=== PATIENT | male | born 1960 | race Caucasian/White ===

== ENCOUNTER 2017-02-15 17:50 | Emergency (ER) | payer MEDICAID, MEDICARE, SELFPAY ==
[2017-02-15] MEDS ORDERED: Sodium Chloride 0.9% 10 ML Syringe FLUSH PRN (17:54)
--- NOTE | 2017-02-15 18:06 | EDM.PDOC ---
ED HPI GENERAL MEDICAL PROBLEM - General Chief Complaint: General Stated Complaint: difficulting speaking Time Seen by Provider: 02/15/17 17:55 Source of Information: Reports: Patient, Family, Old Records History Limitations: Reports: Other (Patient with expressive aphasia) - History of Present Illness INITIAL COMMENTS - FREE TEXT/NARRATIVE: 57 yo male smoker who has been off all of his psych meds for at least 3 mos presents with his family with inability to speak normally since about 0900h today. His "Life Partner" says she had work to do and thought he would get better. Has no local doctor. Has been in [place] for several months, before that he lived in [place]. Can answer some simple questions appropriately. Other answers are inappropriate or incomprehensible. 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 [Unable to Verify Home Med List] 03/20/16 [History] Past Medical History HEENT History: Reports: Hard of Hearing, Other (See Below) Other HEENT History: Suppose to wear glasses. Respiratory History: Reports: COPD Gastrointestinal History: Reports: Hepatitis, Other (See Below) Other Gastrointestinal History: Hepatitis C, not treated. Musculoskeletal History: Reports: Other (See Below) Other Musculoskeletal History: fibromyalgia Neurological History: Reports: Other (See Below) Other Neuro History: Headache at time. Psychiatric History: Reports: Anxiety, Bipolar, Depression Immunologic History: Reports: Other (See Below) Other Immunologic History: Hepatitis C. 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 Dermatologic History: Reports: Other (See Below) Other Dermatologic History: Pre-cancer areas surgically removed to right shoulder and forehead. - Infectious Disease History Infectious Disease History: Reports: Chicken Pox, Hepatitis C, Other (See Below) Other Infectious Disease History: History of measles---type unknown. Social & Family History - Family History Family Medical History: Noncontributory - Tobacco Use Smoking Status *Q: Current Every Day Smoker Years of Tobacco use: 40 Packs/Tins Daily: 2 - Caffeine Use Caffeine Use: Reports: Coffee - Alcohol Use Days Per Week of Alcohol Use: 7 Number of Drinks Per Day: 6 Total Drinks Per Week: 42 - Recreational Drug Use Recreational Drug Use: No ED ROS GENERAL - Review of Systems Review Of Systems: See Below Constitutional: Reports: No Symptoms HEENT: Reports: No Symptoms Respiratory: Reports: No Symptoms Cardiovascular: Reports: No Symptoms Endocrine: Reports: No Symptoms GI/Abdominal: Reports: No Symptoms : Reports: No Symptoms Musculoskeletal: Reports: No Symptoms Skin: Reports: No Symptoms Neurological: Reports: Change in Speech. Denies: Confusion Psychiatric: Reports: No Symptoms ED EXAM, GENERAL - Physical Exam Exam: See Below Exam Limited By: No Limitations General Appearance: Alert, WD/WN, No Apparent Distress Eye Exam: Bilateral Eye: EOMI, Normal Inspection, PERRL Ears: Normal External Exam, Normal Canal, Hearing Grossly Normal, Normal TMs Ear Exam: Bilateral Ear: Auricle Normal, Canal Normal, TM normal Nose: Normal Inspection, Normal Mucosa, No Blood Throat/Mouth: Normal Inspection, Normal Lips, Normal Oropharynx, No Airway Compromise, Other (poor dentitian) Head: Atraumatic, Normocephalic Neck: Normal Inspection, Supple. No: Carotid Bruit Respiratory/Chest: No Respiratory Distress, Lungs Clear, Normal Breath Sounds, No Accessory Muscle Use Cardiovascular: Regular Rate, Rhythm, No Edema GI/Abdominal: Normal Bowel Sounds, Soft, Non-Tender, No Distention Back Exam: Normal Inspection, Full Range of Motion. No: CVA Tenderness (R), CVA Tenderness (L) Extremities: Normal Inspection, Normal Range of Motion, Non-Tender, No Pedal Edema Neurological: Alert, Oriented, CN II-XII Intact, Normal Cognition, No Motor/ Sensory Deficits, Other (speech is not clear and word choices are off) Psychiatric: Normal Affect, Normal Mood Skin Exam: Warm, Dry, Intact, Normal Color, No Rash Lymphatic: No Adenopathy EKG INTERPRETATION EKG Date: 02/15/17 Time: 18:00 Rhythm: NSR Rate (Beats/Min): 80 [place]: Normal P-Wave: Present QRS: Normal ST-T: Normal QT: Normal Comparison: No Change Course - Vital Signs Last Recorded V/S: Last Vital Signs Temp 36.7 C 02/15/17 18:00 Pulse 90 02/15/17 18:00 Resp 19 02/15/17 18:00 BP 142/97 H 02/15/17 18:00 Pulse Ox 100 02/15/17 18:42 - Orders/Labs/Meds Orders: Active Orders 24 hr Category Date Time Status Cardiac Monitoring [RC] .As Directed Care 02/15/17 17:54 Active EKG Documentation Completion [RC] ASDIRECTED Care 02/15/17 17:54 Active Oxygen Therapy Adult [Oxygen Therapy, ED] [RC] Care 02/15/17 18:42 Active ASDIRECTED Head wo Cont [CT] Stat Exams 02/15/17 17:56 Taken BASIC METABOLIC PANEL,BMP [CHEM] Stat Lab 02/15/17 18:10 Received Blood Alcohol [ETHANOL BLOOD MEDICAL] [CHEM] Stat Lab 02/15/17 18:10 Received CBC W/O DIFF,HEMOGRAM [HEME] Stat Lab 02/15/17 18:10 Received TROPONIN I [CHEM] Stat Lab 02/15/17 18:10 Received UA W/MICROSCOPIC [URIN] Stat Lab 02/15/17 18:11 Received Sodium Chloride 0.9% [Saline Flush] Med 02/15/17 17:54 Active 10 ml FLUSH ASDIRECTED PRN Saline Lock Insert [OM.PC] Routine Oth 02/15/17 17:54 Ordered EKG 12 Lead [EK] Routine Ther 02/15/17 17:54 Ordered Medication Orders Sodium Chloride (Saline Flush) 10 ml FLUSH ASDIRECTED PRN PRN Reason: Keep Vein Open Meds: Medications Generic Name Dose Route Start Last Admin Trade Name Freq PRN Reason Stop Dose Admin Sodium Chloride 10 ml 02/15/17 17:54 Saline Flush FLUSH ASDIRECTED PRN Keep Vein Open - Radiology Interpretation Free Text/Narrative:: Evolving thrombotic L frontal CVA CT Results Date: 02/15/17 CT Results Time: 18:35 Departure - Departure Time of Disposition: 18:50 Disposition: DC/Tfer to Acute Hospital 02 Condition: Fair Clinical Impression: Expressive aphasia, Medical non-compliance, Tobacco use HTN (hypertension) Qualifiers: Hypertension type: essential hypertension Qualified Code(s): I10 - Essential ( primary) hypertension CVA (cerebral vascular accident) Qualifiers: CVA mechanism: thrombosis Precerebral and cerebral artery: anterior cerebral artery Laterality of affected vessel: left Qualified Code(s): 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 - Discharge Information Referrals: PCP,None [Primary Care Provider] - Forms: ED Department Discharge - My Orders Last 24 Hours: My Active Orders 02/15/17 17:54 Cardiac Monitoring [RC] .As Directed EKG Documentation Completion [RC] ASDIRECTED Sodium Chloride 0.9% [Saline Flush] 10 ml FLUSH ASDIRECTED PRN Saline Lock Insert [OM.PC] Routine EKG 12 Lead [EK] Routine 02/15/17 17:56 Head wo Cont [CT] Stat 02/15/17 18:10 BASIC METABOLIC PANEL,BMP [CHEM] Stat Blood Alcohol [ETHANOL BLOOD MEDICAL] [CHEM] Stat CBC W/O DIFF,HEMOGRAM [HEME] Stat TROPONIN I [CHEM] Stat 02/15/17 18:11 UA W/MICROSCOPIC [URIN] Stat 02/15/17 18:42 Oxygen Therapy Adult [Oxygen Therapy, ED] [RC] ASDIRECTED - Assessment/Plan Last 24 Hours: My Active Orders 02/15/17 17:54 Cardiac Monitoring [RC] .As Directed EKG Documentation Completion [RC] ASDIRECTED Sodium Chloride 0.9% [Saline Flush] 10 ml FLUSH ASDIRECTED PRN Saline Lock Insert [OM.PC] Routine EKG 12 Lead [EK] Routine 02/15/17 17:56 Head wo Cont [CT] Stat 02/15/17 18:10 BASIC METABOLIC PANEL,BMP [CHEM] Stat Blood Alcohol [ETHANOL BLOOD MEDICAL] [CHEM] Stat CBC W/O DIFF,HEMOGRAM [HEME] Stat TROPONIN I [CHEM] Stat 02/15/17 18:11 UA W/MICROSCOPIC [URIN] Stat 02/15/17 18:42 Oxygen Therapy Adult [Oxygen Therapy, ED] [RC] ASDIRECTED
[2017-02-15 20:03] VITALS: BP 136/56
--- NOTE | 2017-02-16 08:49 | CT ---
INDICATION: Unable to speak since [address] HEAD WITHOUT CONTRAST: Serial contiguous 2.5 and 5-mm sections were obtained through the brain without contrast. No definite cranial abnormality is identified. The mastoid air cells were well aerated. Paranasal sinuses were well aerated. No shift of midline structures or ventricular abnormalities were suggested. Internal carotid artery calcifications are noted. In the left frontal area, there are areas of decreased density extending apparently into the cortex, suggesting an evolving thrombotic CVA in that area of moderate size. MRI may be helpful in further evaluation, as necessary clinically. No other abnormal areas of density were identified - no bleeding site or hematoma was seen. IMPRESSION: Evolving thrombotic CVA suggested in the left frontal distribution. Report was called to Dr. Steinberg at 1833 hours, 02/15/2017. Total Exam DLP = 949.36 mGy-cm. MTDD
== END 2017-02-15 19:15 ==
LOC: FB.ED 17:50
DX: I63.322 Cerebral infarction due to thrombosis of left anterior cerebral artery (principal); I10 Essential (primary) hypertension; J44.9 Chronic obstructive pulmonary disease, unspecified; F17.210 Nicotine dependence, cigarettes, uncomplicated; Z88.0 Allergy status to penicillin
CPT/HCPCS: 36415; 70450; 80048; 81001; 84484; 85027; 93005; 99285; G0480

== ENCOUNTER 2017-03-12 15:03 | Emergency (ER) | payer MEDICARE ==
[2017-03-12 15:21] VITALS: BP 177/82
--- NOTE | 2017-03-12 15:38 | EDM.PDOC ---
ED HPI GENERAL MEDICAL PROBLEM - General Chief Complaint: Eye Problems Stated Complaint: LEFT EYE Time Seen by Provider: 03/12/17 15:15 Source of Information: Reports: Patient History Limitations: Reports: No Limitations - History of Present Illness INITIAL COMMENTS - FREE TEXT/NARRATIVE: L eye irritation for the past couple of weeks. Has not been to the clinic. Eye lids crusted in the mornings. 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 Respiratory History: Reports: COPD Gastrointestinal History: Reports: Hepatitis, Other (See Below) Other Gastrointestinal History: Hepatitis C, not treated. Musculoskeletal History: Reports: Other (See Below) Other Musculoskeletal History: fibromyalgia Neurological History: Reports: CVA, Other (See Below) Other Neuro History: Headache at time. Psychiatric History: Reports: Anxiety, Bipolar, Depression Hematologic History: Reports: None Immunologic History: Reports: Other (See Below) Other Immunologic History: Hepatitis C. 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 Dermatologic History: Reports: Other (See Below) Other Dermatologic History: Pre-cancer areas surgically removed to right shoulder and forehead. - Infectious Disease History Infectious Disease History: Reports: Chicken Pox, Hepatitis C, Measles, Other ( See Below) Other Infectious Disease History: History of measles---type unknown. Social & Family History - Family History Family Medical History: Noncontributory - Tobacco Use Smoking Status *Q: Current Every Day Smoker Years of Tobacco use: 40 Packs/Tins Daily: 1 - Caffeine Use Caffeine Use: Reports: Coffee - Alcohol Use Days Per Week of Alcohol Use: 7 Number of Drinks Per Day: 6 Total Drinks Per Week: 42 - Recreational Drug Use Recreational Drug Use: No ED ROS GENERAL - Review of Systems Review Of Systems: See Below Constitutional: Reports: No Symptoms HEENT: Reports: Eye Discharge, Eye Pain (L eye) Respiratory: Reports: No Symptoms Cardiovascular: Reports: No Symptoms Skin: Reports: Erythema (L upper lid red) Neurological: Reports: No Symptoms ED EXAM GENERAL W FULL EYE - Physical Exam Exam: See Below Exam Limited By: No Limitations General Appearance: Alert, WD/WN, No Apparent Distress Eye Exam: Bilateral Eye: PERRL, Other (L upper lid swollen and red with stye) Eyelids: Left: Stye (upper lid) Conjunctiva & Sclera: Bilateral: Normal Appearance Extraocular Movements: Bilateral: Intact Pupillary Size: Bilateral: 3 mm Ears: Normal External Exam, Normal Canal, Hearing Grossly Normal, Normal TMs Nose: Normal Inspection, Normal Mucosa Throat/Mouth: Normal Inspection, Normal Lips, Normal Teeth, Normal Oropharynx, Normal Voice, No Airway Compromise Head: Atraumatic, Normocephalic Neck: Normal Inspection, Supple, Non-Tender Skin Exam: Warm, Dry, Intact, Normal Color, No Rash Lymphatic: No Adenopathy Course - Vital Signs Last Recorded V/S: Last Vital Signs Temp 36.4 C 03/12/17 15:16 Pulse 87 03/12/17 15:16 Resp 20 03/12/17 15:16 BP 177/82 H 03/12/17 15:16 Pulse Ox 98 03/12/17 15:16 Departure - Departure Time of Disposition: 15:40 Disposition: Home, Self-Care 01 Condition: Good Clinical Impression: Stye Qualifiers: Laterality: left Eyelid: upper Qualified Code(s): H00.014 - Hordeolum externum left upper eyelid - Discharge Information Prescriptions: Erythromycin Base [Erythromycin 0.5% Ophth Oint] 1 applic OP Q8H #1 tube Referrals: PCP,None [Primary Care Provider] - Forms: ED Department Discharge Additional Instructions: Apply warm, wet compresses to the left eye for 15 min every 8 hrs. Then apply the antibiotic ointment. Call and schedule a clinic appt for next week.
== END 2017-03-12 15:42 | disposition home or self-care (01) ==
LOC: FB.ED 15:03
DX: H00.014 Hordeolum externum left upper eyelid (principal); J44.9 Chronic obstructive pulmonary disease, unspecified; F31.9 Bipolar disorder, unspecified; F17.210 Nicotine dependence, cigarettes, uncomplicated; Z86.73 Personal history of transient ischemic attack (TIA), and cerebral infarction without residual deficits; Z88.0 Allergy status to penicillin
CPT/HCPCS: 99282

== ENCOUNTER 2017-07-26 06:11 | Day surgery (SDC) | payer MEDICARE ==
[2017-07-26] MEDS: Lactated Ringers 1,000 ML IV SCH ×2 (07:55→09:07)
[2017-07-26] MEDS ORDERED: fentaNYL 100 MCG/2 ML SDV IV ONE (08:30)
[2017-07-26] MEDS ORDERED: Propofol 200 MG/20 ML SDV IV ONE (08:30)
[2017-07-26] MEDS ORDERED: Midazolam 1 MG/ML 2 ML SDV IV ONE (08:30)
--- NOTE | 2017-07-26 09:05 | PCM.OPNOTE ---
- General Post-Op/Procedure Note Date of Surgery/Procedure: 07/26/17 Operative Procedure(s): c scope with bx Findings: rectal polyps x3 Pre Op Diagnosis: screening Post-Op Diagnosis: rectal polyps x3 Anesthesia Technique: MAC Primary Surgeon: Yoav Rojas Anesthesia Provider: Suhas Baca Pathology: rectal polyps x3 Complications: None Condition: Good Free Text/Narrative:: see dictation
--- NOTE | 2017-07-26 09:52 | OR ---
DATE OF OPERATION: 07/26/2017 SURGEON: Yoav Rojas MD PROCEDURE PERFORMED: Colonoscopy with cold forceps biopsy. PREOPERATIVE DIAGNOSIS: Need for screening colonoscope. POSTOPERATIVE DIAGNOSIS: Rectal polyp x3. INDICATIONS FOR PROCEDURE: This is a 57-year-old white male who presents for a followup colonoscopy. He was offered and accepted same. DESCRIPTION OF OPERATION: After an excellent IV sedation was administered, digital rectal exam was performed. No marked abnormality was noted. Flexible colonoscope was inserted and advanced without difficulty to the cecum. The prep was excellent. The following findings were noted. Ascending colon, unremarkable. Transverse colon, unremarkable. Descending colon, unremarkable. Sigmoid, unremarkable. Rectum, just above the anal verge, three polypoid lesions, biopsied with cold biopsy forceps and sent for permanent. The colon was deflated. Scope was removed. The patient tolerated the procedure well and was taken to recovery room in good condition. /[id number]/AGUILAR
[2017-07-26 10:24] VITALS: BP 141/76
== END 2017-07-26 10:40 | disposition home or self-care (01) ==
LOC: FB.SDS 06:11
PROVIDERS: ATTEND Surgery
DX: Z12.11 Encounter for screening for malignant neoplasm of colon (principal); K62.1 Rectal polyp; I10 Essential (primary) hypertension; E78.5 Hyperlipidemia, unspecified; Z88.0 Allergy status to penicillin; Z80.0 Family history of malignant neoplasm of digestive organs; Z79.82 Long term (current) use of aspirin; Z79.899 Other long term (current) drug therapy
CPT/HCPCS: 00812; 45380; 88305; J2250; J2704; J3010; J7120